=== PATIENT | male | born 1995 | race Caucasian/White ===

== ENCOUNTER 2016-11-15 20:31 | Emergency (ER) | payer BC ==
[~2016-11-15] VITALS: Ht 188 cm; Wt 115.7 kg
[2016-11-15 20:56] VITALS: BP 153/62
--- NOTE | 2016-11-15 20:56 | ED.ADGEN ---
Past History Past Medical History: No Pertinent History Past Surgical History: Tonsillectomy Alcohol Use: None Drug Use: None Adult General Chief Complaint Chief Complaint " I got a fever...".. My mother was here the other day..." HPI HPI Patient is a 21 year old male who presents with above history and complaints. Patient states he is been sick the last 24 hours. Patient does not know what his temperature is but it feels like he has a fever.. No recent travel. No immunosuppression. Patient is normally healthy. Patient is been exposed to mother who has a viral infection.. Patient does complain of sore throat. Review of Systems Review of Systems Constitutional: Patient has complaints fever or chills [] Eyes: Denies change in visual acuity, redness, or eye pain [] HENT: Denies nasal congestion or sore throat [] Respiratory: Denies cough or shortness of breath [] Cardiovascular: No additional information not addressed in HPI [] GI: Denies abdominal pain, nausea, vomiting, bloody stools or diarrhea [] : Denies dysuria or hematuria [] Musculoskeletal: Denies back pain or joint pain [] Integument: Denies rash or skin lesions [] Neurologic: Denies headache, focal weakness or sensory changes [] Endocrine: Denies polyuria or polydipsia [] Family History Family History Mother has a viral infection Current Medications Current Medications Current Medications Medications (Trade) Dose Ordered Sig/Gilbert Start Time Stop Time Status Last Admin Dose Admin Acetaminophen (Tylenol) 500 mg STK-MED ONCE 11/15/16 21:02 11/16/16 11:25 TN See nursing for home meds Allergies Allergies Allergies Coded Allergies Type Severity Reaction Last Updated Verified No Known Drug Allergies 02/24/16 No Physical Exam Physical Exam Constitutional: Well developed, well nourished, no acute distress, non-toxic appearance. [] HENT: Normocephalic, atraumatic, bilateral external ears normal, oropharynx moist, mild pharyngeal injection, no oral exudates, nose mild rhinorrhea. Eyes: PERRLA, EOMI, conjunctiva normal, no discharge. [] Neck: Normal range of motion, no tenderness, supple, no stridor. [] Cardiovascular:Heart rate regular rhythm, no murmur [] Lungs & Thorax: Bilateral breath sounds with a few scattered wheezes on auscultation [] Abdomen: Bowel sounds normal, soft, no tenderness, no masses, no pulsatile masses. Circumcised male Skin: Warm, dry, no erythema, no rash. [] Back: No tenderness, no CVA tenderness. [] Extremities: No tenderness, no cyanosis, no clubbing, ROM intact, no edema. [] Neurologic: Alert and oriented X 3, normal motor function, normal sensory function, no focal deficits noted. [] Psychologic: Affect anxious, judgement normal, mood normal. [] Current Patient Data Vital Signs Vital Signs Date Time Temp Pulse Resp B/P Pulse Ox O2 Delivery O2 Flow Rate FiO2 11/15/16 22:25 99.3 11/15/16 20:56 142 20 99 Room Air Lab Results Laboratory Tests Test 11/15/16 21:00 Influenza Type A (Rapid) Negative (NEGATIVE) Influenza Type B (Rapid) Negative (NEGATIVE) Group A Streptococcus Rapid Negative (NEGATIVE) EKG EKG [] Radiology/Procedures Radiology/Procedures [] Course & Med Decision Making Course & Med Decision Making Pertinent Labs and Imaging studies reviewed. (See chart for details). Push fluids. Take [id number] Tylenol and ibuprofen for discomfort and fever. Follow-up primary care. Return if any concerns. [] Final Impression Final Impression 1. Fever[] 2. Viral syndrome Problems: Dragon Disclaimer Dragon Disclaimer This electronic medical record was generated, in whole or in part, using a voice recognition dictation system. LAURYN SIDHU MD Nov 15, 2016 20:56
[2016-11-15] MEDS ORDERED: ACETAMINOPHEN 500 MG TABLET PO ONE ×2 (21:00→21:02)
[2016-11-15 21:45] LABS: INFLUENZA A PATIENT NEGATIVE (NEGATIVE); INFLUENZA B PATIENT NEGATIVE (NEGATIVE)
--- NOTE | 2016-11-16 08:30 | RAD ---
Exam: PA and lateral chest radiograph History: Cough, congestion, shortness of air, fever for 2 days. Comparison: 04/26/2016. Findings: Cardiomediastinal silhouette is within normal limits for size. Bilateral lung mauricio are free of focal infiltrate. No pleural effusion is seen. Impression: No acute cardiopulmonary process.
== END 2016-11-15 22:25 | disposition home or self-care (01) ==
LOC: ER 20:41
DX: B34.9 Viral infection, unspecified (principal); R50.9 Fever, unspecified
CPT/HCPCS: 71020; 87070; 87804; 87880; 99285-25

== ENCOUNTER → 2017-05-30 | Outpatient (CLI) | payer BC ==
--- NOTE | 2017-05-30 16:01 | RAD ---
Indication left flank pain for 3 weeks. The abdomen was scanned as well as the upper pelvis. The entire pelvis was not scanned. No prior CT imaging of the abdomen or pelvis is available. The lung bases are clear. The liver and spleen appear unremarkable. The gallbladder is largely contracted but grossly normal. The pancreas appears unremarkable. No adrenal or renal pathology is seen. There are no renal calculi on either side. There is no hydronephrosis. No hydroureter is seen through the areas examined. No acute finding is seen in the abdomen. Occasional diverticula are seen associated with the visualized large bowel. There are scattered small lymph nodes seen in the abdominal mesentery. IMPRESSION: No acute finding seen in the abdomen. PQRS Compliance Statement: One or more of the following individualized dose reduction techniques were utilized for this examination: 1. Automated exposure control 2. Adjustment of the mA and/or kV according to patient size 3. Use of iterative reconstruction technique
== END | disposition home or self-care (01) ==
LOC: CT 14:16
PROVIDERS: ATTEND Physician Assistant Medical
DX: K57.30 Diverticulosis of large intestine without perforation or abscess without bleeding (principal); K82.0 Obstruction of gallbladder
CPT/HCPCS: 74150

== ENCOUNTER 2017-11-06 03:10 | Emergency (ER) | payer BC ==
[~2017-11-06] VITALS: Ht 188 cm; Wt 120.2 kg
[2017-11-06 03:10] VITALS: BP 158/96
[2017-11-06] MEDS ORDERED: PENI500T PO (03:30)
[2017-11-06] MEDS ORDERED: HYDR-971 PO (03:30)
--- NOTE | 2017-11-06 03:34 | ED.ADGEN ---
Past History Past Medical History: No Pertinent History Past Surgical History: No Surgical History Alcohol Use: Occasionally Drug Use: None Adult General Chief Complaint Chief Complaint mouth pain HPI HPI Patient is a 21 year old male who presents with 3 days of increased R upper dental pain over posterior rear teeth. No fevers, not resolved with Aleve, access to dentist but not until Tuesday. Review of Systems Review of Systems Constitutional: Denies fever or chills [] Eyes: Denies change in visual acuity, redness, or eye pain [] HENT: Denies nasal congestion or sore throat [] Respiratory: Denies cough or shortness of breath [] Cardiovascular:no chest pain GI: Denies abdominal pain, nausea, vomiting, bloody stools or diarrhea [] : Denies dysuria or hematuria [] Musculoskeletal: Denies back pain or joint pain [] Integument: Denies rash or skin lesions [] Neurologic: Denies headache, focal weakness or sensory changes [] Allergies Allergies Allergies Coded Allergies Type Severity Reaction Last Updated Verified No Known Drug Allergies 02/24/16 No Physical Exam Physical Exam Constitutional: Well developed, well nourished, no acute distress, non-toxic appearance. [] HENT: Normocephalic, atraumatic, bilateral external ears normal, oropharynx moist, erythema with ttp along tooth #1 with no fluctance, no trismus, remaining teeth appearing normal Eyes: PERRLA, EOMI, conjunctiva normal, no discharge. [] Neck: Normal range of motion, no tenderness, supple, no stridor. [] Lungs & Thorax: no resp distress Neurologic: Alert and oriented X 3, normal motor function, normal sensory function, no focal deficits noted. [] Psychologic: Affect normal, judgement normal, mood normal. [] Current Patient Data Vital Signs Vital Signs Date Time Temp Pulse Resp B/P (MAP) Pulse Ox O2 Delivery O2 Flow Rate FiO2 11/06/17 03:10 98.2 98 16 99 Room Air EKG EKG [] Radiology/Procedures Radiology/Procedures [] Course & Med Decision Making Course & Med Decision Making Pertinent Labs and Imaging studies reviewed. (See chart for details) Pt still has wisdom teeth. Exam looks consistent with pericoronitis. Will treat with pcn 5 days, norco, continue Aleve, instructed to see dentist Tuesday, no driving on narcs. Final Impression Final Impression pericoronitis[] Problems: Dragon Disclaimer Dragon Disclaimer This electronic medical record was generated, in whole or in part, using a voice recognition dictation system. PRECIOUS LEE MD Nov 06, 2017 03:34
== END 2017-11-06 03:38 | disposition home or self-care (01) ==
LOC: ER 03:10
DX: K05.30 Chronic periodontitis, unspecified (principal)
CPT/HCPCS: 99283

== ENCOUNTER 2018-11-05 19:43 | Emergency (ER) | payer BC ==
[~2018-11-05] VITALS: Ht 188 cm; Wt 120.2 kg
[~2018-11-05 19:43] MED LIST: HYDR-3165 PO; PENI500T PO
[2018-11-05 19:59] VITALS: BP 140/72
--- NOTE | 2018-11-05 20:40 | RAD ---
Right shoulder radiograph 11/05/2018 8:06 PM INDICATION: Fall on right shoulder COMPARISON: None available. TECHNIQUE: 3 views of the right shoulder are provided. FINDINGS: There is no acute fracture or dislocation. Bone mineralization is within normal limits. Joint spaces are maintained. Regional soft tissues are within normal limits. There is no soft tissue gas or osseous erosion. IMPRESSION: No acute fracture or dislocation. Electronically signed by: Radha Fajardo MD (11/05/2018 8:37 PM) [facility]
[2018-11-05] MEDS ORDERED: ORPH-16 PO (20:58)
--- NOTE | 2018-11-05 20:58 | PHYS DOC ---
Past History Past Medical History: Anxiety Past Surgical History: Tonsillectomy Smoking: Cigarettes Additional Smoking Information: 1 PPD Alcohol Use: None Drug Use: None Adult General Chief Complaint Chief Complaint: SHOULDER INJURY HPI HPI 22-year-old male presents with report of right shoulder pain after patient reports he slipped on the stairs and caught himself on a handrail earlier today. Patient reports initially felt like he could not move his shoulder. Reports he "forced it "back into position and felt and heard a loud "pop". Patient reports now he has some limited range of motion due to discomfort. Denies prior injury to shoulder. Denies headache or neck pain. 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 Review of Systems Review of Systems Constitutional: Denies fever or chills [] Respiratory: Denies cough or shortness of breath [] Cardiovascular: Denies chest pain or palpitations GI: Denies abdominal pain, nausea, vomiting, or diarrhea [] : Denies dysuria or hematuria [] Musculoskeletal: Denies back pain; reports right shoulder pain Integument: Denies rash or skin lesions [] Neurologic: Denies headache, focal weakness or sensory changes [] Complete systems were reviewed and found to be within normal limits, except as documented in this note. Current Medications Current Medications Current Medications Medications (Trade) Dose Ordered Sig/Gilbert Start Time Stop Time Status Last Admin Dose Admin Ibuprofen (Motrin) 600 mg 1X ONCE 11/05/18 21:00 11/05/18 21:01 11/05/18 20:38 600 MG Allergies Allergies Allergies Coded Allergies Type Severity Reaction Last Updated Verified No Known Drug Allergies 02/24/16 No Physical Exam Physical Exam Constitutional: Well developed, well nourished, no acute distress, non-toxic appearance. [] HENT: Normocephalic, atraumatic, oropharynx moist, Eyes: Conjunctiva normal, no discharge. [] Neck: Normal range of motion, no tenderness, supple Cardiovascular: Heart rate regular rhythm, no murmur [] Lungs & Thorax: Bilateral breath sounds clear to auscultation [] Abdomen: Soft, no tenderness Skin: Warm, dry, no erythema, no rash. [] Extremities: Right shoulder intact, no obvious deformity, Radial pulse +2, CR < 2 sec, ROM limited due to pain primarily abduction and external rotation Neurologic: Alert and oriented X 3, no focal deficits noted. [] Psychologic: Affect normal, judgement normal, mood normal. [] Current Patient Data Vital Signs Vital Signs Date Time Temp Pulse Resp B/P (MAP) Pulse Ox O2 Delivery O2 Flow Rate FiO2 11/05/18 19:59 98.0 90 20 Room Air 98.0 EKG EKG [] Radiology/Procedures Radiology/Procedures PROCEDURE: SHOULDER 2+V RIGHT Right shoulder radiograph 11/05/2018 8:06 PM INDICATION: Fall on right shoulder COMPARISON: None available. TECHNIQUE: 3 views of the right shoulder are provided. FINDINGS: There is no acute fracture or dislocation. Bone mineralization is within normal limits. Joint spaces are maintained. Regional soft tissues are within normal limits. There is no soft tissue gas or osseous erosion. IMPRESSION: No acute fracture or dislocation. Electronically signed by: Radha Fajardo MD (11/05/2018 8:37 PM) [facility] Course & Med Decision Making Course & Med Decision Making Pertinent Imaging studies reviewed. (See chart for details) Patient presents with report of right shoulder injury after slip and fall. No obvious deformity noted. Limb neurovascularly intact. Symptomatic treatment provided with oral ibuprofen. X-ray obtained without acute fracture or dislocation. Cannot fully exclude prior dislocation with self relocation. Shoulder immobilizer placed. Patient advised to do shoulder circles outside of immobilizer at least 4-5 times daily. Patient otherwise to keep immobilizer on for the next week or until cleared by PCP/orthopedics. Patient stable for discharge with outpatient follow-up with PCP/human services care specialist. Discussed findings and plan with patient and family, who acknowledge understanding and agreement. Dragon Disclaimer Dragon Disclaimer This electronic medical record was generated, in whole or in part, using a voice recognition dictation system. Departure Departure: Impression: Primary Impression: Right shoulder strain Disposition: 01 HOME, SELF-CARE Condition: STABLE Referrals: NAIMA MENJIVAR (PCP) IVELISSE CASTILLO MD Patient Instructions: Shoulder Immobilizer, Shoulder Sprain Additional Instructions: Make sure to take right arm out of shoulder immobilizer at least 4 times daily and do "shoulder circles". Do 10 circles in each direction at least 4 times daily to maintain mobility in shoulder. Use over the counter Tylenol or Ibuprofen for pain or discomfort. Scripts Orphenadrine Citrate (ORPHENADRINE CITRATE) 100 Mg Tablet.er 1 TAB PO BID PRN for MUSCLE PAIN, #14 TAB 0 Refills Prov: MONTANA CUNNINGHAM DO 11/05/18 Problem Qualifiers Primary Impression: Right shoulder strain Encounter type: initial encounter Qualified Codes: S46.911A - Strain of unspecified muscle, fascia and tendon at shoulder and upper arm level, right arm , initial encounter MONTANA CUNNINGHAM DO Nov 05, 2018 20:58
[2018-11-05] MEDS ORDERED: IBUPROFEN 600 MG TABLET. PO ONE (21:00)
== END 2018-11-05 21:13 | disposition home or self-care (01) ==
LOC: ER 19:43
DX: S46.911A Strain of unspecified muscle, fascia and tendon at shoulder and upper arm level, right arm, initial encounter (principal); F41.9 Anxiety disorder, unspecified; F17.210 Nicotine dependence, cigarettes, uncomplicated; W10.8XXA Fall (on) (from) other stairs and steps, initial encounter; Y93.89 Activity, other specified; Y92.89 Other specified places as the place of occurrence of the external cause; Y99.8 Other external cause status
CPT/HCPCS: 29105; 73030; 99283

== ENCOUNTER 2019-01-27 23:41 | Emergency (ER) | payer BC ==
[~2019-01-27] VITALS: Ht 188 cm; Wt 122.5 kg
[~2019-01-27 23:41] MED LIST changes: +ORPH-16 PO
--- NOTE | 2019-01-27 23:47 | ED.ADGEN ---
Past History Past Medical History: Anxiety Past Surgical History: Tonsillectomy Smoking: Cigarettes Alcohol Use: None Drug Use: None Adult General Chief Complaint Chief Complaint ".. I twisted my ankle when I jumped a fence.. I heard my yelling get off me.. but she was only yelling at a bug.. " [facility] HPI Patient is a 23 year old male who presents with above hx and complaints Lt ankle and foot injury. Pt. reports an inversion type injury at 2130 hrs. Pt. has been unable to bear wt on it since. Pt. has pain with foot squeeze. Anterior draw to ankle mortis. No heel Achilles tendon pain. No upper leg pain. Has edema. Distal neurovascular and capillary refill equal to Rt. foot. Pt. denies other injury. Pt. denies any history immunosuppression. No history of travel or specific ill contacts. Normally follows with Ramin. Patient describes pain is moderately severe no improvement since injury. Review of Systems Review of Systems Constitutional: Denies fever or chills [] Eyes: Denies change in visual acuity, redness, or eye pain [] HENT: Denies nasal congestion or sore throat [] Respiratory: Denies cough or shortness of breath [] Cardiovascular: No additional information not addressed in HPI [] GI: Denies abdominal pain, nausea, vomiting, bloody stools or diarrhea [] : Denies dysuria or hematuria [] Musculoskeletal:Complaints of left foot and ankle pain Integument: Denies rash or skin lesions [] Neurologic: Denies headache, focal weakness or sensory changes [] Endocrine: Denies polyuria or polydipsia [] All other systems were reviewed and found to be within normal limits, except as documented in this note. Family History Family History Noncontributory Current Medications Current Medications Current Medications Medications (Trade) Dose Ordered Sig/Gilbert Start Time Stop Time Status Last Admin Dose Admin Ketorolac Tromethamine (Toradol Im) 60 mg 1X ONCE 01/28/19 00:00 01/28/19 00:21 DC Allergies Allergies Allergies Coded Allergies Type Severity Reaction Last Updated Verified No Known Drug Allergies 02/24/16 No Physical Exam Physical Exam Constitutional: inacute distress, non-toxic appearance. [] HENT: Normocephalic, atraumatic, bilateral external ears normal, oropharynx moist, no oral exudates, nose normal. [] Eyes: PERRLA, EOMI, conjunctiva normal, no discharge. [] Neck: Normal range of motion, no tenderness, supple, no stridor. [] Cardiovascular:Heart rate regular rhythm, no murmur [] Lungs & Thorax: Bilateral breath sounds clear to auscultation [] Abdomen: Bowel sounds normal, soft, no tenderness, no masses, no pulsatile masses. [] Skin: Warm, dry, no erythema, no rash. [] Back: No tenderness, no CVA tenderness. [] Extremities: No tenderness, no cyanosis, no clubbing, ROM intact, no edema. [] Except findings in Lt ankle. Neurologic: Alert and oriented X 3, normal motor function, normal sensory function, no focal deficits noted. [] Psychologic: Affect normal, judgement normal, mood normal. [] Current Patient Data Vital Signs Vital Signs Date Time Temp Pulse Resp B/P (MAP) Pulse Ox O2 Delivery O2 Flow Rate FiO2 01/27/19 23:58 98.9 102 18 98 Room Air EKG EKG [] Radiology/Procedures Radiology/Procedures Interpretation x-ray of left foot and ankle show[]no obvious fx. or dislocation. Edema. Course & Med Decision Making Course & Med Decision Making Pertinent Labs and Imaging studies reviewed. (See chart for details) Ice, elevation, rest, splint, crutches, and follow-up primary care. Take Tylenol or ibuprofen for pain. For marked pain may take Vicoprofen up 4 times a day. Follow-up with [] Final Impression Final Impression 1. Lt. Ankle and foot sprain Dragon Disclaimer Dragon Disclaimer This electronic medical record was generated, in whole or in part, using a voice recognition dictation system. Discharge Summary Visit Information Final Diagnosis Problems Medical Problems: (1) Ankle sprain Status: Acute Brief Hospital Course Allergies Allergies Coded Allergies Type Severity Reaction Last Updated Verified No Known Drug Allergies 02/24/16 No Vital Signs Vital Signs Date Time Temp Pulse Resp B/P (MAP) Pulse Ox O2 Delivery O2 Flow Rate FiO2 01/27/19 23:58 98.9 102 18 98 Room Air Brief Hospital Course Mr. Mcgill is a 23 old male who presented with Lt ankle and foot sprain. Discharge Information Condition at Discharge: Improved, Stable Disposition/Orders: D/C to Home Dischare Medications Current Medications Ketorolac Tromethamine (Toradol Im) 60 mg 1X ONCE IM ; Start 01/28/19 at 00:00; Stop 01/28/19 at 00:21; Status DC Active Scripts Active Orphenadrine Citrate 100 Mg Tablet.er 1 Tab PO BID PRN Penicillin V Potassium 500 Mg Tablet 1 Tab PO QID [place] 5-325 Tablet (Hydrocodone Bit/Acetaminophen) 1 Each Tablet 1 Tab PO PRN Q6HRS PRN Dragon Disclaimer This chart was dictated in whole or in part using Voice Recognition software in a busy, high-work load, and often noisy Emergency Department environment. It may contain unintended and wholly unrecognized errors or omissions. LAURYN SIDHU MD Jan 27, 2019 23:47
[2019-01-28] MEDS: KETOROLAC 60 MG/2 ML VIAL. IM ONE
--- NOTE | 2019-01-28 08:58 | RAD ---
EXAM: 1. ANKLE LEFT 3V, 2. FOOT LEFT 3V. HISTORY: Fall with left ankle and shoulder pain. COMPARISON: None. FINDINGS: There is mild soft tissue swelling laterally at the ankle. The joint spaces and alignment of the ankle mortise are maintained. No fractures are identified throughout the foot or ankle. Joint spaces and alignment are also maintained throughout the foot. IMPRESSION: 1. Mild lateral soft tissue swelling at the ankle. No fracture throughout. Electronically signed by: Hernandez Segovia MD (01/28/2019 8:55 AM) [facility]
== END 2019-01-28 00:49 | disposition home or self-care (01) ==
LOC: ER 23:41
DX: S93.402A Sprain of unspecified ligament of left ankle, initial encounter (principal); S93.602A Unspecified sprain of left foot, initial encounter; F41.9 Anxiety disorder, unspecified; F17.210 Nicotine dependence, cigarettes, uncomplicated; X50.1XXA Overexertion from prolonged static or awkward postures, initial encounter; Y93.39 Activity, other involving climbing, rappelling and jumping off; Y92.89 Other specified places as the place of occurrence of the external cause; Y99.8 Other external cause status
CPT/HCPCS: 29515; 73610; 73630; 99284